=== PATIENT | male | born 1935 | race Caucasian/White ===

== ENCOUNTER 2024-12-07 13:31 | Emergency (ER) | payer MEDICARE, SELFPAY ==
[2024-12-07 13:42] VITALS: BP 196/81; PULSE 108; RESP 17; TEMP 36.5; O2SAT 98; BMI 24.1
--- NOTE | 2024-12-07 14:26 | CTR_ITS ---
PROCEDURE INFORMATION: Exam: CT Lumbar Spine Without Contrast Exam date and time: 12/07/2024 2:36 PM Age: 89 years old Clinical indication: Other: Bilateral leg weakness; Additional info: Neuropath ankush lower ext TECHNIQUE: Imaging protocol: Computed tomography of the lumbar spine without contrast. Radiation optimization: All CT scans at this facility use at least one of these dose optimization techniques: automated exposure control; mA and/or kV adjustment per patient size (includes targeted exams where dose is matched to clinical indication); or iterative reconstruction. COMPARISON: No relevant prior studies available. RADIATION DOSE METRICS: Total DLP (mGy-cm): 712.77 FINDINGS: Bones/joints: Moderate disc space narrowing at L1-L2. Mild disc space narrowing at L2-L3. Mild disc space narrowing at L3-L4. Severe disc space narrowing at L4-L5. Moderate disc space narrowing at L5-S1. Moderate posterior disc bulging/inferior extrusion at L4-L5, causing mild central canal and moderate left/severe right neural foraminal stenosis which is further accentuated bilateral osteophytosis. Calcifications, presumably of the PLL, at the level of L5, causing mild central canal stenosis. Subtle superior endplate deformity at L1 with an associated Schmorl node, likely a chronic compressive injury with minimal loss in vertebral body height. Moderate multilevel anterior osteophytes. Facet joints have marked degenerative narrowing and sclerosis. Bone demineralization. Spinal cord: Mild posterior disc bulging at L1-L2, causing mild central canal and bilateral neural foraminal stenosis. Moderate posterior disc bulging at L2-L3, causing mild central canal and moderate bilateral neural foraminal stenosis. Moderate posterior disc bulging at L3-L4, causing moderate central canal and moderate left/severe right neural foraminal stenosis. Kidneys and ureters: Bilateral parapelvic renal cysts. Chronically atrophied left kidney. Bilateral punctate nonobstructive nephrolithiasis. Vasculature: Moderate atherosclerotic calcification of the arterial vasculature. Soft tissues: Unremarkable. CT/CT lumbar spine wo con* [id number] IMPRESSION: 1. No acute fracture. 2. Moderate to severe degenerative and disc disease, detailed above. COMMENTS: Consistent with the [employer]'s Incidental Findings Committee white paper (J Am Kyle Radiol 2018): Any incidental renal lesion less than 1 cm or classified as too small to characterize, or any incidental cystic renal lesion characterized as simple-appearing, is likely benign. No follow-up imaging is recommended for these lesions per consensus recommendations based on imaging criteria.
--- NOTE | 2024-12-07 14:26 | CTR_ITS ---
PROCEDURE INFORMATION: Exam: CT Head Without Contrast Exam date and time: 12/07/2024 2:33 PM Age: 89 years old Clinical indication: Weakness, extremity; Left; Additional info: Lower ext weakness TECHNIQUE: Imaging protocol: Computed tomography of the head without contrast. Radiation optimization: All CT scans at this facility use at least one of these dose optimization techniques: automated exposure control; mA and/or kV adjustment per patient size (includes targeted exams where dose is matched to clinical indication); or iterative reconstruction. COMPARISON: No relevant prior studies available. RADIATION DOSE METRICS: Total DLP (mGy-cm): 1135.31 FINDINGS: Brain: Age related brain involution is present. Diffuse subcortical and periventricular white matter hypodensities are most in favor with chronic small vessel disease. Cerebral ventricles: Compensatory exvacuo ventriculomegaly. Paranasal sinuses: Visualized sinuses are unremarkable. No fluid levels. Mastoid air cells: Visualized mastoid air cells are well aerated. Bones: Unremarkable. No acute fracture. Soft tissues: Unremarkable. Other findings: Intracranial atherosclerosis is present. CT/CT head wo con* [id number] IMPRESSION: 1. No acute intracranial hemorrhage or mass effect. 2. No evidence of acute/subacute ischemia.
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
[2024-12-07 16:01] LABS: Basophils % 0.3 %; Eosinophils # 0.1 10^3/uL (0.0-0.8); Eosinophils % 0.5 %; Hematocrit 50.6 % (37-53); Lymphocytes # 0.9 10^3/uL (0.8-4.8); Mean Corpuscular HGB Conc 31.4 g/dL (30-55); Mean Corpuscular Hemoglobin 28.8 pg (27-33); Mean Corpuscular Volume 91.5 fl (82-101); Mean Platelet Volume 12.1 fL (7.4-10.4); Monocytes # 0.4 10^3/uL (0.2-0.9); Monocytes % 3.7 %; Neutrophils % 87.3 %; Nucleated Red Blood Cells % 0 %; Platelet Count 109 10^3/cmm (157-399); Red Blood Count 5.53 10^6/uL (3.85-5.65); Red Cell Distribution Width 14.2 % (12.1-15.1); White Blood Count 11.44 10^3/uL (3.29-11.43)
[2024-12-07 16:33] LABS: Alanine Aminotransferase 18 U/L (0-41); Albumin Level 3.8 g/dL (3.5-5.2); Alkaline Phosphatase 94 U/L (40-130); Blood Urea Nitrogen 26 mg/dL (8-23); Calcium 9.6 mg/dL (8.5-10.5); Carbon Dioxide 21 mmol/L (22-29); Chloride 104 mmol/L (98-107); Creatinine Clr Calc Pharmacy 55.8307; Globulin 3.6 g/dL (1.3-4.6); Glucose 113 mg/dL (65-115); Osmolality Calculated 290 mOsm/kg (285-295); Sodium 137 mmol/L (136-145); Total Bilirubin 0.5 mg/dL (0.15-1.2); Total Protein 7.4 g/dL (6.6-8.7)
[2024-12-07 16:43] LABS: Anion Gap 16.8 (5-19); Aspartate Amino Transferase 30 U/L (0-40); Potassium 4.8 mmol/L (3.5-5.1)
[2024-12-07 17:04] VITALS: BP 167/76; PULSE 98; O2SAT 98
--- NOTE | 2024-12-08 07:50 | DCPLANNER ---
messaged neuro for er f/u
== END 2024-12-07 17:05 | disposition home or self-care (01) ==
PROVIDERS: Emergency Provider Nurse Practitioner Family
DX: G58.8 Other specified mononeuropathies (principal)
CPT/HCPCS: 36415; 70450; 72131; 80053; 85025; 99284

== ENCOUNTER 2025-01-04 15:56 | Emergency (ER) | payer MEDICARE, SELFPAY ==
[2025-01-04] VITALS (11 sets, daily range): BP systolic 104–163; BP diastolic 53–96; PULSE 98–110; RESP 16–18; TEMP 37.5; O2SAT 92–97; BMI 23.1
--- NOTE | 2025-01-04 16:10 | CTR_ITS ---
PROCEDURE INFORMATION: Exam: CTA Abdominal Aorta and Bilateral Lower Extremities (Run-off) With Contrast Exam date and time: 01/04/2025 4:35 PM Age: 89 years old Clinical indication: Numbness; Lower extremity and toe(s); Bilateral; Additional info: Bilateral limb ischemia, acute. No pulses below waist. TECHNIQUE: Imaging protocol: Computed tomographic angiography of the of the abdominal aorta, pelvis and bilateral lower extremities with contrast. 3D rendering (Not supervised by radiologist): MIP and/or 3D reconstructed images were created by the technologist. Radiation optimization: All CT scans at this facility use at least one of these dose optimization techniques: automated exposure control; mA and/or kV adjustment per patient size (includes targeted exams where dose is matched to clinical indication); or iterative reconstruction. Contrast material: OMNIPAQUE 350; Contrast volume: 100 ml; Contrast route: INTRAVENOUS (IV); COMPARISON: CT lumbar spine wo con* [id number] 12/07/2024 2:36 PM RADIATION DOSE METRICS: Total DLP (mGy-cm): 1028.67 FINDINGS: Tubes, catheters and devices: There is an IVC occlusion device in place. Aorta: No aortic aneurysm. No aortic dissection. Celiac trunk and mesenteric arteries: No occlusion or significant stenosis. Renal arteries: No occlusion or significant stenosis. Right iliac arteries: The right common iliac artery is patent. The right external iliac artery is occluded at its origin. Right femoral/popliteal arteries: The right common femoral artery, superficial femoral artery and popliteal artery are occluded. Right infrapopliteal arteries: The right anterior tibial, posterior tibial and peroneal arteries are not opacified. Left iliac arteries: The left common iliac artery is patent. The left external iliac artery is occluded proximally. Left femoral/popliteal arteries: The left common femoral and proximal and mid superficial femoral arteries are occluded. The superficial femoral artery reconstitutes as a very diminutive vessel distally. The left popliteal artery is diminutive. Left infrapopliteal arteries: The left anterior tibial and peroneal arteries are opacified for a short distance but then non opacified along with the posterior tibial artery throughout the calf. Liver: No mass. Gallbladder and biliary ducts: The gallbladder is absent. Pancreas: Unremarkable. No mass. No ductal dilation. 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 Adrenal glands: Normal. No mass. Kidneys and ureters: Asymmetric atrophy of the left kidney with cortical irregularities consistent with prior injury. Stomach and bowel: Unremarkable. No obstruction. No mucosal thickening. Appendix: No evidence of appendicitis. Urinary bladder: Unremarkable. No mass. Reproductive: Unremarkable as visualized. Intraperitoneal space: Unremarkable. No free air. No significant fluid collection. Lymph nodes: No lymphadenopathy. Bones/joints: Prior ORIF with compression plate and multiple cortical screws spanning the mid to distal left femur an intramedullary clementina with 2 proximal and 2 distal interlocking screws spans the left tibia. Old healed fracture deformity of the distal 1/3 of the left femur. Old healed fracture deformity of the distal 1/3 of the left tibia and fibula. Soft tissues: Unremarkable. Other findings: Multiple bilateral parapelvic cysts. No follow-up imaging of the cyst is indicated. CT/CT angio abd aorta runof [id number] IMPRESSION: 1. The right common iliac artery is patent. The right external iliac artery is occluded at its origin. 2. The right common femoral artery, superficial femoral artery and popliteal artery are occluded. 3. The right anterior tibial, posterior tibial and peroneal arteries are not opacified. 4. The left common iliac artery is patent. The left external iliac artery is occluded proximally. 5. The left common femoral and proximal and mid superficial femoral arteries are occluded. The superficial femoral artery reconstitutes as a very diminutive vessel distally. The left popliteal artery is diminutive. 6. The left anterior tibial and peroneal arteries are opacified for a short distance but then non opacified along with the posterior tibial artery throughout the calf.
[2025-01-04 16:29] LABS: ABG PCO2 31.3 mmHg (35-45); ABG PH Result 7.48 (7.35-7.45); Base Excess ABG 0.3 mmol/L (-2.0-2.0); Blood Gas Operator Identificat AMH; Blood Gas Sample Site Brachial, left; Blood Gas Sample Type Arterial; Carboxyhemoglobin 0.9 %THgb (0.4-20.1); HCO3 ABG 23.1 mmol/L (22-26); HGB O2 Sat 95.6 % (95-100); Methemoglobin 1.1 % (0.4-1.5); Oxygen Device ROOM AIR; PO2 ABG 78.9 mmHg (80.0-100.0); PO2 FiO2 Ratio Arterial Blood 375
[2025-01-04] MEDS: iohexol 350 mg/mL 500 mL Btl (per mL) IV (16:38)
[2025-01-04 16:41] LABS: Basophils # 0.1 10^3/uL (0.0-0.1); Basophils % 0.2 %; Eosinophils # 0.2 10^3/uL (0.0-0.8); Eosinophils % 0.8 %; Lymphocytes % 4.9 %; Mean Corpuscular HGB Conc 32.1 g/dL (30-55); Mean Corpuscular Hemoglobin 28.4 pg (27-33); Mean Corpuscular Volume 88.6 fl (82-101); Mean Platelet Volume 11.2 fL (7.4-10.4); Monocytes # 0.9 10^3/uL (0.2-0.9); Monocytes % 4.6 %; Neutrophils # 17.89 10^3/uL (1.8-7.7); Nucleated Red Blood Cells % 0 %; Platelet Count 410 10^3/cmm (157-399); Red Blood Count 4.29 10^6/uL (3.85-5.65); Red Cell Distribution Width 14.1 % (12.1-15.1); White Blood Count 20.12 10^3/uL (3.29-11.43)
[2025-01-04 16:55] LABS: INR 1.11 (0.8-1.2)
[2025-01-04 16:56] LABS: Partial Thromboplastin Time 30.6 SECONDS (23.9-36.7)
[2025-01-04 16:59] LABS: Lactic Sepsis W/Reflex 1.7 mmol/L (0.5-2.2)
[2025-01-04 17:10] LABS: Procalcitonin 0.17 ng/mL (0-0.5)
[2025-01-04 17:23] LABS: Alanine Aminotransferase 41 U/L (0-41); Alkaline Phosphatase 91 U/L (40-130); Blood Urea Nitrogen 28 mg/dL (8-23); Calcium 8.9 mg/dL (8.5-10.5); Carbon Dioxide 20 mmol/L (22-29); Chloride 102 mmol/L (98-107); Creatinine Clr Calc Pharmacy 60.3455; Globulin 3.9 g/dL (1.3-4.6); Glucose 106 mg/dL (65-115); Osmolality Calculated 288 mOsm/kg (285-295); Sodium 136 mmol/L (136-145); Total Bilirubin 0.4 mg/dL (0.15-1.2); Total Protein 6.9 g/dL (6.6-8.7)
[2025-01-04 17:28] LABS: Alcohol Level < 10 mg/dL (0-10); Anion Gap 18.8 (5-19); Aspartate Amino Transferase 39 U/L (0-40); Potassium 4.8 mmol/L (3.5-5.1)
--- NOTE | 2025-01-04 17:44 | PC.NURSE ---
no pedal pulses palpable.
[2025-01-04] MEDS: heparin 5,000 unit/mL INJ 1 mL 4000 UNIT IVP (19:06)
[2025-01-04] MEDS: heparin drip 25,000 UNIT/500 ML PREMIX 23 UNIT IV (19:08)
--- NOTE | 2025-01-04 19:16 | ED_ITS ---
HPI - Extremity Problem 2 General: Chief complaint: Extremity Injury, Lower Stated complaint: feet turning back sent from wound care Time Seen by Provider: 01/04/25 16:10 Source: patient, family and RN notes reviewed Mode of arrival: ambulatory Limitations: no limitations History of Present Illness: Worsening pain and difficulty ambulating for the past month. 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 Sent here for further eval. Related Data Home Medications ?Medication ?Instructions ?Recorded ?Confirmed [id number] acid 400 1 tab PO DAILY 01/04/25 0 01/04/25 mcg-lycopene 600 mcg-ginkgo 120 mg tablet (One Daily Men's 50 Plus Memory Support) vitamin B complex 1 tab PO DAILY 01/04/2512/26 vitamin B12 0.5 mg-folic acid 1 mg 1 tab PO DAILY 12/2601/04/25 tablet Allergies Allergy/AdvReac Type Severity Reaction Status Date / Time No Known Allergies Allergy Verified 12/07/24 13:46 Review of Systems 2 General: Reports: 10 or more systems reviewed and unremarkable except in HPI and below Physical Exam 2 Const: COMMON NORMALS: no acute distress, average body habitus, patient oriented x3, healthy appearing, alert and well nourished GENERAL APPEARANCE: well kempt and well developed HENMT: COMMON NORMALS: normocephalic, atraumatic, external ears normal and moist oral mucous membranes HEAD & SCALP: normocephalic and atraumatic E XTERNAL EAR: Yes external ears normal Eye: COMMON NORMALS: Equal, round and reactive pupils present, EOMs intact bilaterally and conjunctivae normal CONJUNCTIVA: Yes conjunctivae normal P UPIL: Yes Equal, round and reactive pupils present Neck/C-Spine: COMMON NORMALS: full ROM, no lymphadenopathy and supple Chest: CHEST: Yes Symmetrical chest wall rise and No Surgical scars present (Chest) Resp: COMMON NORMALS: normal respiratory effort, No retractions, No use of accessory muscles and clear to auscultation bilaterally AUSCULTATION: clear to auscultation bilaterally Cardio: COMMON NORMALS: regular rate, regular rhythm, S1 normal heart sound present, S2 normal heart sound present, No gallops present (Cardio), No clicks present (Cardio), No murmurs present (Cardio) and No rub (Cardio) RATE: r egular rate RHYTHM: regular rhythm HEART SOUNDS: S1 normal heart sound present, S2 normal heart sound present and no murmurs PERIPHERAL PULSES: b rachial pulses not present, radial pulses not present, ulnar pulses not present, femoral pulses not present, popliteal pulses not present, posterior tibial pulses not present and dorsalis pedis pulses not present GI: COMMON NORMALS: Soft to palpation, non-tender and no masses INSPECTION: No abdominal distension PALPATION: Yes Soft to palpation, No Guarding due to palpation present (GI) and No Rebound tenderness present : COMMON NORMALS: Yes no CVA tenderness BLADDER/KIDNEY EXAM: Yes no CVA tenderness Back/Pelvis: COMMON NORMALS: no CVA tenderness Extremity: COMMON NORMALS: normal to inspection and no pedal edema; negative for full ROM, negative for capillary refill normal and negative for no clubbing, cyanosis or edema NARRATIVE EXTREMITY EXAM: Bilaterally has no DP or PT pulses in either foot. Patient also has started have dry gangrene to bilateral feet. Neuro: COMMON NORMALS: patient oriented x3 SENSORIUM/ORIENTATION: Yes alert Psych: APPEARANCE: Yes well kempt Skin: COMMON NORMALS: no rashes or lesions noted, no wounds, turgor normal and no jaundice GENERAL SKIN EXAM: no rashes or lesions noted and turgor normal Course 2 Vital Signs: Vital signs: Vital Signs Temperature 99.5 F 01/04/25 16:03 Pulse Rate 107 H 01/04/25 19:00 Respiratory Rate 18 01/04/25 16:03 Blood Pressure 113/96 01/04/25 19:00 Pulse Oximetry 95 01/04/25 19:00 Oxygen Delivery Me thod Room Air 01/04/25 19:00 MDM - Extremity (Nontraumatic) Medical Decision Making Patient sent from wound care for loss of pulses in both feet. Patient having worsening function in bilateral legs. Seeing wound care for an ulcer already. CT shows bilateral external iliac artery occlusion. Notified vascular surgery and hospitalist at [facility]. Patient will be transferred there as soon as I once is available. Heparin drip started. Patient accepted by Dr. Montgomery at [facility] Medical Records I reviewed the patient's medical records. Lab Data I reviewed the patient's lab results. 01/04/25 16:25 01/04/25 16:25 Radiology Impressions Aorta w/Runoff CTA 01/04/25 16:10 IMPRESSION: 1. The right common iliac artery is patent. The right external iliac artery is occluded at its origin. 2. The right common femoral artery, superficial femoral artery and popliteal artery are occluded. 3. The right anterior tibial, posterior tibial and peroneal arteries are not opacified. 4. The left common iliac artery is patent. The left external iliac artery is occluded proximally. 5. The left common femoral and proximal and mid superficial femoral arteries are occluded. The superficial femoral artery reconstitutes as a very diminutive vessel distally. The left popliteal artery is diminutive. 6. The left anterior tibial and peroneal arteries are opacified for a short distance but then non opacified along with the posterior tibial artery throughout the calf. ADDENDUM: 01/04/25 [id number] THIS REPORT CONTAINS FINDINGS THAT MAY BE CRITICAL TO PATIENT CARE. The findings were verbally communicated via telephone conference with SAAD Barton at 6:34 PM CDT on 01/04/2025. The findings were acknowledged and understood. Laboratory Results WBC 20.12 10^3/uL (3.29-11.43) H 01/04/25 16:25 RBC 4.29 10^6/uL (3.85-5.65) 01/04/25 16:25 Hgb 12.20 g/dL (11.27-16.99) 01/04/25 16:25 Hct 38.0 % (37-53) 01/04/25 16: MCV 88.6 fl (82-101) 01/04/25 16: MCH 28.4 pg (27-33) 01/04/25 16: MCHC 32.1 g/dL (30-55) 01/04/25 16: RDW 14.1 % (12.1-15.1) 01/04/25 16: Plt Count 410 10^3/cmm (157-399) H 01/04/25 16:25 MPV 11.2 fL (7.4-10.4) H 01/04/25 16:25 Neut % (Auto) 89.0 % 01/04/25 16:25 Lymph % (Auto) 4.9 % 01/04/25 16:25 Andrew % (Auto) 4.6 % 01/04/25 16:25 Eos % (Auto) 0.8 % 01/04/25 16:25 Baso % (Auto) 0.2 % 01/04/25 16:25 Neut # (Auto) 17.89 10^3/uL (1.8-7.7) H 01/04/25 16:25 Lymph # (Auto) 1.0 10^3/uL (0.8-4.8) 01/04/25 16:25 Andrew # (Auto) 0.9 10^3/uL (0.2-0.9) 01/04/25 16:25 Eos # (Auto) 0.2 10^3/uL (0.0-0.8) 01/04/25 16:25 Baso # (Auto) 0.1 10^3/uL (0.0-0.1) 01/04/25 16:25 Nucleated RBC % (auto) 0 % 01/04/25 16: Nucleated RBCs # 0.0 /100WBC 01/04/25 16:25 PT 15.10 SECONDS (12.1-14.9) H 01/04/25 16:25 INR 1.11 (0.8-1.2) 01/04/25 16:25 APTT 30.6 SECONDS (23.9-36.7) 01/04/25 16:25 Specimen Type Arterial 01/04/25 16:18 Sample Site Brachial, left 01/04/25 16:18 ABG pH 7.48 (7.35-7.45) H 01/04/25 16:18 ABG pCO2 31.3 mmHg (35-45) L 01/04/25 16:18 ABG pO2 78.9 mmHg (80.0-100.0) L 01/04/25 16:18 ABG PO2/FiO2 Ratio 375 01/04/25 16:18 ABG HCO3 23.1 mmol/L (22-26) 01/04/25 16:18 ABG Base Excess 0.3 mmol/L (-2.0-2.0) 01/04/25 16:18 Rafa Test N/a 01/04/25 16:18 Hematocrit 40.0 % (42-52) L 01/04/25 16:18 Hgb O2 Saturation 95.6 % (95-100) 01/04/25 16:18 Carboxyhemoglobin 0.9 %THgb (0.4-20.1) 01/04/25 16:18 Methemoglobin 1.1 % (0.4-1.5) 01/04/25 16:18 Total Hemoglobin 13.0 g/dL (14-18) L 01/04/25 16:18 O2 Delivery Device Room air 01/04/25 16:18 FiO2 21.0 % 01/04/25 16:18 Area Representative ID Amh 01/04/25 16:18 Sodium 136 mmol/L (136-145) 01/04/25 16:25 Potassium 4.8 mmol/L (3.5-5.1) 01/04/25 16:25 Chloride 102 mmol/L (98-107) 01/04/25 16:25 Carbon Dioxide 20 mmol/L (22-29) L 01/04/25 16:25 Anion Gap 18.8 (5-19) 01/04/25 16:25 BUN 28 mg/dL (8-23) H 01/04/25 16:25 Creatinine 1.0 mg/dL (0.7-1.2) 01/04/25 16:25 GFR Calculation Not Reportable 01/04/25 16:25 Glucose 106 mg/dL (65-115) 01/04/25 16:25 Calculated Osmolality 288 mOsm/kg (285-295) 01/04/25 16:25 Lactic Acid 1.7 mmol/L (0.5-2.2) 01/04/25 16:25 Calcium 8.9 mg/dL (8.5-10.5) 01/04/25 16:25 Total Bilirubin 0.4 mg/dL (0.15-1.2) 01/04/25 16:25 AST 39 U/L (0-40) 01/04/25 16:25 ALT 41 U/L (0-41) 01/04/25 16:25 Alkaline Phosphatase 91 U/L (40-130) 01/04/25 16:25 Total Protein 6.9 g/dL (6.6-8.7) 01/04/25 16:25 Albumin 3.0 g/dL (3.5-5.2) L 01/04/25 16:25 Globulin 3.9 g/dL (1.3-4.6) 01/04/25 16:25 Procalcitonin 0.17 ng/mL (0-0.5) 01/04/25 16:25 Ethyl Alcohol < 10 mg/dL (0-10) 01/04/25 16:25 All radiology interpretation(s) finalized by discharge ED provider radiology interpretation(s): Bilateral iliac artery occlusion Critical Care Time 2 Critical Care Time: Critical Care Time: Yes Total Critical Care Time: 42 Attestation: This case had a high probability of a clinically significant, sudden, or life threatening deterioration of this patient's condition which required my full and direct attention, intervention and personal management. 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
--- NOTE | 2025-01-04 21:31 | PC.NURSE ---
pt report called to [phone] to Deepti Nicolas RN at 2130.
== END 2025-01-04 22:20 | disposition short-term general hospital (02) ==
PROVIDERS: Emergency Provider Emergency Medicine; PCP Family Medicine
DX: I74.5 Embolism and thrombosis of iliac artery (principal); I70.223 Atherosclerosis of native arteries of extremities with rest pain, bilateral legs
CPT/HCPCS: 36600; 75635; 80053; 80307; 82805; 83605; 84145; 85025; 85610; 85730; 96374; 99285; J1644

== ENCOUNTER 2025-03-01 11:41 | Emergency (ER) | payer MEDICARE, MEDICAID, SELFPAY ==
[2025-03-01 11:43] VITALS: BP 142/83; PULSE 101; RESP 18; O2SAT 97
--- NOTE | 2025-03-01 11:51 | W.ED.WOUNDLC ---
HPI - Wound/Laceration General: Chief Complaint: Wound/Laceration Stated Complaint: left side LE swelling/pain Time Seen by Provider: 03/01/25 11:45 History of Present Illness: 89-year-old male presents to the emergency room with complaints of dehiscence of wounds. 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 Once of DSD had been following at wound care but he has not been seeing them anymore evidently. He is was a had not [place] again but he refused treatment. He still stating does not want any further treatment. Does not want any more surgeries. Associated symptoms: Denies chills or fever(s) Related Data Home Medications ?Medication ?Instructions ?Recorded ?Confirmed acetaminophen 325 mg capsule 650 mg PO QID PRN 02/02/25 02/20/25 bisacodyl 10 mg rectal suppository 10 mg NV DAILY PRN 02/02/25 02/20/25 (Dulcolax (bisacodyl)) bisacodyl 5 mg tablet,delayed 5 mg PO DAILY PRN 02/02/25 02/20/25 release (Dulcolax (bisacodyl)) magnesium hydroxide 400 mg/5 mL 30 ml PO Q72H PRN 02/02/25 02/20/25 oral suspension (Milk of Magnesia) oxycodone 5 mg capsule 5 mg PO Q8H PRN 02/02/25 02/20/25 sennosides 8.6 mg-docusate sodium 1 tab-cap PO BID 02/02/25 02/20/25 50 mg capsule sodium phosphates 19 gram-7 118 ml NV DAILY PRN 02/02/25 02/20/25 gram/118 mL enema (Fleet Enema) Allergies Allergy/AdvReac Type Severity Reaction Status Date / Time No Known Allergies Allergy Verified 02/20/25 15:01 Review of Systems Const: Denies: fever(s) or chills Card: Denies: chest pain Resp: Denies: dyspnea GI: Denies: abdominal pain : Denies: dysuria, urinary frequency or urinary urgency Musc: Denies: neck pain or back pain Skin/Breast: Denies: rash PFSH ED PFSH: Medical History Prediabetes Acute sepsis Acidosis, lactic Gangrene, not elsewhere classified Critical limb ischemia of both lower extremities Moderate protein-calorie malnutrition AF (atrial fibrillation) Nontoxic single thyroid nodule Closed compression fracture of L2 vertebra Unspecified fracture of unspecified lumbar vertebra, initial encounter for closed fracture Multiple fractures of ribs, left side, initial encounter for closed fracture Acute kidney failure, unspecified Surgical History Hx of cholecystectomy History of tonsillectomy History of surgery 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 Adhesiolysis laparoscopic Femoral embolectomy Femur hardware removal Social History Smoking and tobacco/nicotine status: former use of tobacco/nicotine (Quit at 30 years old) Housing: Custodial Physical Exam Const: COMMON NORMALS: no acute distress GENERAL APPEARANCE: cooperative and comfortable ORIENTATION/CONSCIOUSNESS: Yes awake, Yes oriented to person, Yes oriented to place and Yes oriented to time HENMT: COMMON NORMALS: normocephalic, atraumatic and hearing grossly normal bilaterally HEAD & SCALP: normocephalic and atraumatic Resp: COMMON NORMALS: normal respiratory effort, No retractions, No use of accessory muscles and clear to auscultation bilaterally AUSCULTATION: clear to auscultation bilaterally Cardio: COMMON NORMALS: regular rate, regular rhythm and No murmurs present (Cardio) RATE: regular rate RHYTHM: regular rhythm GI: COMMON NORMALS: Soft to palpation and No hepatosplenomegaly present AUSCULTATION: Yes normoactive bowel sounds PALPATION: Yes Soft to palpation, No Tenderness to palpation present (GI), No Guarding due to palpation present (GI) and Yes No hepatosplenomegaly present Extremity: OTHER: Distal lower extremities are dehisced with devascularized tissue present no redness no erythema no drainage. No sign of any gangrenous changes. No exposed bone at this time Neuro: SENSORIUM/ORIENTATION: Yes oriented to person, Yes oriented to place and Yes oriented to time Skin: COMMON NORMALS: no rashes or lesions noted GENERAL SKIN EXAM: no rashes or lesions noted Course Vital Signs: Vital signs: Vital Signs Pulse Rate 101 H 03/01/25 11:43 Respiratory Rate 18 03/01/25 11:43 Blood Pressure 142/83 03/01/25 11:43 Pulse Oximetry 97 03/01/25 11:43 Oxygen Delivery Me thod Room Air 03/01/25 11:43 MDM - Wound/Laceration Medical Decision Making Patient is in need of debridement of these wounds and likely would benefit from wound VAC however he is absolutely adamant that he does not want any further surgeries. Called and talked to the surgeon who actually does initial surgery she agrees he needs aggressive wound care including debridement initially. Since patient is [place] refusing for left with no other Trispec just refer him back to wound care wounds redressed with wet-to-dry wounds and have him follow-up through wound care clinic he can if he changes mind about pursuing surgical treatments he can return at any point we can refer as appropriate Medical Records I reviewed the patient's medical records. Lab Data I reviewed the patient's lab results. 03/01/25 11:32 03/01/25 11:32 Laboratory Results WBC 10.14 10^3/uL (3.29-11.43) 03/01/25 11:32 RBC 4.24 10^6/uL (3.85-5.65) 03/01/25 11:32 Hgb 11.10 g/dL (11.27-16.99) L 03/01/25 11:32 Hct 35.9 % (37-53) L 03/01/25 11:32 MCV 84.7 fl (82-101) 03/01/25 11:32 MCH 26.2 pg (27-33) L 03/01/25 11:32 MCHC 30.9 g/dL (30-55) 03/01/25 11:32 RDW 15.2 % (12.1-15.1) H 03/01/25 11:32 Plt Count 409 10^3/cmm (157-399) H 03/01/25 11:32 MPV 10.9 fL (7.4-10.4) H 03/01/25 11:32 Neut % (Auto) 76.0 % 03/01/25 11:32 Lymph % (Auto) 9.7 % 03/01/25 11:32 [place] % (Auto) 6.1 % 03/01/25 11:32 Eos % (Auto) 7.1 % 03/01/25 11:32 Baso % (Auto) 0.7 % 03/01/25 11:32 Neut # (Auto) 7.71 10^3/uL (1.8-7.7) H 03/01/25 11:32 Lymph # (Auto) 1.0 10^3/uL (0.8-4.8) 03/01/25 11:32 [place] # (Auto) 0.6 10^3/uL (0.2-0.9) 03/01/25 11:32 Eos # (Auto) 0.7 10^3/uL (0.0-0.8) 03/01/25 11:32 Baso # (Auto) 0.1 10^3/uL (0.0-0.1) 03/01/25 11:32 Nucleated RBC % (auto) 0 % 03/01/25 11:32 Nucleated RBCs # 0.0 /100WBC 03/01/25 11:32 Sodium 137 mmol/L (136-145) 03/01/25 11:32 Potassium 4.2 mmol/L (3.5-5.1) 03/01/25 11:32 Chloride 102 mmol/L (98-107) 03/01/25 11:32 Carbon Dioxide 25 mmol/L (22-29) 03/01/25 11:32 Anion Gap 14.2 (5-19) 03/01/25 11:32 BUN 20 mg/dL (8-23) 03/01/25 11:32 Creatinine 0.8 mg/dL (0.7-1.2) 03/01/25 11:32 GFR Calculation Not Reportable 03/01/25 11:32 Glucose 105 mg/dL (65-115) 03/01/25 11:32 Calculated Osmolality 287 mOsm/kg (285-295) 03/01/25 11:32 Calcium 8.8 mg/dL (8.5-10.5) 03/01/25 11:32 Total Bilirubin 0.3 mg/dL (0.15-1.2) 03/01/25 11:32 AST 14 U/L (0-40) 03/01/25 11:32 ALT 8 U/L (0-41) 03/01/25 11:32 Alkaline Phosphatase 81 U/L (40-130) 03/01/25 11:32 Total Protein 6.9 g/dL (6.6-8.7) 03/01/25 11:32 Albumin 2.8 g/dL (3.5-5.2) L 03/01/25 11:32 Globulin 4.1 g/dL (1.3-4.6) 03/01/25 11:32 No radiology studies performed this visit Discharge Plan Discharge Patient Disposition: Home Clinical Impression: Disruption of external operation (surgical) wound, not elsewhere classified, initial encounter, Moderate protein-calorie malnutrition Condition: Stable Prescriptions: No Action magnesium hydroxide [Milk of Magnesia] 400 mg/5 mL suspension 30 ml PO Q72H PRN bisacodyl [Dulcolax (bisacodyl)] 10 mg suppository 10 mg NV DAILY PRN oxycodone 5 mg capsule 5 mg PO Q8H PRN Fleet Enema 19-7 gram/118 mL enema 118 ml NV DAILY PRN bisacodyl [Dulcolax (bisacodyl)] 5 mg tablet,delayed release (DR/EC) 5 mg PO DAILY PRN acetaminophen 325 mg capsule 650 mg PO QID PRN sennosides-docusate sodium 8.6-50 mg capsule 1 tab-cap PO BID Discharge Orders: Discharge ED (Routine); Ordered 03/01/25 Ordered By: Jed Leblanc Referrals: Jerrell Troy MD [Primary Care Provider, Family Practice] Discharge Diet: Usual diet Discharge Activity: Resume usual activity Patient Instructions: Opioid Safety, Pain Management Activity Restrictions/Additional Instructions: Thank you for choosing [facility] for your healthcare needs today. It is very important that you follow up as instructed or that you return to the Emergency Department should you have concerns or if your condition changes or worsens in any way. You were seen in the emergency room regarding the wounds at your amputation sites. The wounds have opened up and is a require debridement to allow for removal of tissue so that the wounds will actually begin to heal out. I discussed with your surgeon as well as your attending physician at the custodial. We all recommend the same course of treatment. You declined and wished to continue just basic wound care. You can return at any point or talk to your primary care doctor about this. Your original surgeon said she would be happy to pursue the debridement if you do change your mind. At this time there is no sign of infection antibiotics are not indicated. Print Language: Albanian Coding Level of Care Code ED Medical Associate for Lucretia Castellon
[2025-03-01 11:57] LABS: Basophils # 0.1 10^3/uL (0.0-0.1); Basophils % 0.7 %; Eosinophils # 0.7 10^3/uL (0.0-0.8); Eosinophils % 7.1 %; Hematocrit 35.9 % (37-53); Lymphocytes % 9.7 %; Mean Corpuscular HGB Conc 30.9 g/dL (30-55); Mean Corpuscular Hemoglobin 26.2 pg (27-33); Mean Corpuscular Volume 84.7 fl (82-101); Mean Platelet Volume 10.9 fL (7.4-10.4); Monocytes # 0.6 10^3/uL (0.2-0.9); Monocytes % 6.1 %; Neutrophils # 7.71 10^3/uL (1.8-7.7); Nucleated Red Blood Cells % 0 %; Platelet Count 409 10^3/cmm (157-399); Red Blood Count 4.24 10^6/uL (3.85-5.65); Red Cell Distribution Width 15.2 % (12.1-15.1); White Blood Count 10.14 10^3/uL (3.29-11.43)
[2025-03-01 12:28] LABS: Alanine Aminotransferase 8 U/L (0-41); Albumin Level 2.8 g/dL (3.5-5.2); Alkaline Phosphatase 81 U/L (40-130); Anion Gap 14.2 (5-19); Aspartate Amino Transferase 14 U/L (0-40); Blood Urea Nitrogen 20 mg/dL (8-23); Calcium 8.8 mg/dL (8.5-10.5); Carbon Dioxide 25 mmol/L (22-29); Chloride 102 mmol/L (98-107); Creatinine Clr Calc Pharmacy 70.0772; Globulin 4.1 g/dL (1.3-4.6); Glucose 105 mg/dL (65-115); Osmolality Calculated 287 mOsm/kg (285-295); Potassium 4.2 mmol/L (3.5-5.1); Sodium 137 mmol/L (136-145); Total Bilirubin 0.3 mg/dL (0.15-1.2); Total Protein 6.9 g/dL (6.6-8.7)
== END 2025-03-01 14:12 | disposition home or self-care (01) ==
PROVIDERS: Emergency Provider Family Medicine; PCP Family Medicine
DX: T81.31XA Disruption of external operation (surgical) wound, not elsewhere classified, initial encounter (principal); Z87.891 Personal history of nicotine dependence; X58.XXXA Exposure to other specified factors, initial encounter
CPT/HCPCS: 80053; 85025; 99283